=== PATIENT | female | born 2000 | race Caucasian/White ===

== ENCOUNTER 2023-12-08 23:39 | Emergency (ER) | payer BC ==
[~2023-12-08] VITALS: Ht 165.1 cm; Wt 66.4 kg
[2023-12-08 23:53] VITALS: TEMP 98.1
[2023-12-09] MEDS: BACITRACIN 0.9 GM PACKET OINTMENT TP ONE (00:14)
[2023-12-09] MEDS: ACETAMINOPHEN 500 MG TABLET PO ONE (00:14)
[2023-12-09] MEDS: AMOX TR/POT CLAV 875 MG/125 MG TABLET PO ONE (00:25)
[2023-12-09] MEDS: PERTUSS(ACELL),DIPH,TET/PF 0.5 ML SYRINGE [ADULT] IM. ONE (00:53)
[2023-12-09 01:48] VITALS: BP 131/84; PULSE 99; RESP 18
== END 2023-12-09 02:36 ==
LOC: EMS 23:40
DX: S62.617A Displaced fracture of proximal phalanx of left little finger, initial encounter for closed fracture (principal); Y08.89XA Assault by other specified means, initial encounter; Y93.89 Activity, other specified; Y92.89 Other specified places as the place of occurrence of the external cause; Y99.8 Other external cause status
CPT/HCPCS: 70450; 71250; 72125; 90471; 90715; 99285